=== PATIENT | male | born 1975 | race Caucasian/White ===

== ENCOUNTER → 2023-09-07 17:16 | Outpatient (CLI) | payer BC, SELFPAY ==
--- NOTE | 2023-09-07 | DI.MRI.S_ITS ---
PROCEDURE: MR KNEE LT WO CON INDICATIONS: Unspecified internal derangement of left knee TECHNIQUE: Noncontrast sagittal PD fast spin echo and T2 fast spin echo with fat saturation, sagittal 3-D FLASH with fat saturation; coronal T1 spin echo and PD fast spin echo with fat saturation, and axial PD fast spin echo with fat saturation through the knee. COMPARISON: None. FINDINGS: Image quality: Excellent. Menisci: There is an oblique tear involving the posterior horn of the patient's medial meniscus extending to the inferior joint surface. Lateral meniscus appears within normal limits. Cruciate ligaments: The anterior and posterior cruciate ligaments appear intact. Medial structures: The medial collateral ligament appears intact. The posterior oblique ligament, semimembranosus tendon insertions, oblique popliteal ligament, and meniscocapsular junction appear intact. Visualized portions of the pes anserinus tendons appear normal. No abnormal bursal fluid. Lateral structures: The lateral collateral ligament, long and short heads of the biceps femoris tendon appear intact. The popliteus tendon appears normal; the popliteofibular ligament appears intact. The posterosuperior and anteroinferior popliteomeniscal fascicles appear intact. The arcuate and fabellofibular ligaments appear intact, on either side of the lateral inferior geniculate artery. Iliotibial band appears normal. Anterior structures: The quadriceps and patellar tendons appear intact. Patellar alignment is normal. No femoral trochlear dysplasia or ventral trochlear prominence. No edema in the infrapatellar fat pad. Bones and cartilage: No bone marrow contusions or fractures. There is mild to moderate chondromalacia involving the articular surface of the medial compartment. Remainder of the articular cartilage appears intact. Joint space: There is a moderate-sized knee joint effusion. A tiny Arroyo's cyst is present. Normal appearing synovial plicae are incidentally noted. IMPRESSION: 1. Oblique tear involving the posterior horn of the patient's medial meniscus extending to the inferior joint surface. 2. 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 3. Moderate-sized knee joint effusion. 4. Tiny Arroyo's cyst Dictated by: Patel Johnson M.D. on 09/08/2023 at 9:39 Approved by: Patel Johnson M.D. on 09/08/2023 at 9:44
== END ==
PROVIDERS: PCP Family Medicine; Referring Provider Orthopaedic Surgery Foot and Ankle Surgery; Visit Provider Orthopaedic Surgery Foot and Ankle Surgery
DX: M23.92 Unspecified internal derangement of left knee (principal); S83.242A Other tear of medial meniscus, current injury, left knee, initial encounter; M94.262 Chondromalacia, left knee; M25.462 Effusion, left knee; M71.22 Synovial cyst of popliteal space [Baker], left knee
CPT/HCPCS: 73721

== ENCOUNTER 2024-11-28 09:19 | Day surgery (SDC) | payer BC, SELFPAY ==
[2024-11-28 09:32] VITALS: BP 126/78; PULSE 90; RESP 16; TEMP 36.4; O2SAT 96
[2024-11-28] MEDS: LACTATED RINGERS 1,000 ML 42 ML IV (09:41)
--- NOTE | 2024-11-28 10:00 | P.HP_ITS ---
History of Present Illness History of Present Illness Date Patient Seen: 11/28/24 Time Patient Seen: 10:00 Chief complaint: Colonoscopy w/poss bx Narrative: 49-year-old white male with personal history of polyps presents for colon screening [facility] Medical History (Updated 11/28/24 @ 10:01 by Jose Newman MD) Personal history of colonic polyps (2019) Multiple atypical skin moles (~2006) Chronic back pain (~2006) Chicken pox (~1984) Depression (~1999) Hypogonadism in male (~2006) Surgical History (Updated 11/24/22 @ 21:12 by Gloria Blackmon) Anesthesia History of oral surgery Family History (Updated 11/24/22 @ 21:13 by Gloria Blackmon) Father Cancer Melanoma Grandfather Cancer Grandmother Alcohol abuse Social History Smoking Status: Former smoker alcohol intake: never Meds Home Medications and Allergies Home Medications Medication Instructions Recorded Confirmed Type testosterone 0.6 ml IM WEEKLY 10/19/22 11/28/24 History bupropion HCl 300 mg 24 hr tablet, 300 mg PO QAM #90 tabs 01/07/24 11/28/24 Rx extended release (Wellbutrin XL) sodium,potassium,mag sulfates 17.5 See Rx Instructions PO .COMPLEX 10/26/24 Rx gram-3.13 gram-1.6 gram oral soln #354 mL (Suprep Bowel Prep Kit) zolpidem 5 mg tablet (Ambien) 5 mg PO BEDTIME PRN insomnia #30 11/10/24 11/28/24 Rx tabs Allergies Allergy/AdvReac Type Severity Reaction Status Date / Time No Known Drug Allergies Allergy Verified 11/28/24 09:26 Exam Vital Signs (past 8 hours): - 11/28/24 09:32 Temperature 97.6 F Pulse Rate 90 Respiratory Rate 16 Blood Pressure 126/78 Pulse Oximetry 96 Oxygen Delivery Method Room Air Oxygen Delivery Method Room Air Narrative Exam Narrative: Gen: NAD, sitting comfortably in bed, appears well HEENT: Sclera are anicteric, head is normocephalic and atraumatic, trachea is midline. CV: RRR, no JVD Resp: clear to auscultation bilaterally, equal chest wall movement bilaterally Abd: soft, nontender, normoactive bowel sounds Ext: no edema, full range of motion Neuro: Cranial nerves II-XII grossly intact, no focal deficits Skin: No erythema or ecchymosis Assessment & Plan Assessment and plan (1) Personal history of colonic polyps: Status: Acute Assessment & Plan narrative: Patient presents for colonoscopy Risks, benefits, alternatives to colonoscopy explained, including but not limited to bowel perforation or other serious complication requiring surgery at less than 1 in 5000 colonoscopies, abdominal pain, cramping or bleeding and less than 1% of colonoscopies, and the chances that we find a diagnosis that would require further intervention of about 2%. Patient agrees to proceed. Time-Based Coding :: [TOTAL MINUTES] spent with patient and on the chart (including review of chart, obtaining history, exam, reviewing outside data, placing orders, documenting exam and treatment plan, and counseling patient) on [DATE]. [employer] Document charge(s): No
[2024-11-28 10:20] VITALS: BP 102/64; PULSE 77; RESP 14; TEMP 36.2; O2SAT 96
--- NOTE | 2024-11-28 10:20 | PM.OP.COLON ---
Operative Date/Time/Diagnoses Date of procedure: 11/28/24 Time of procedure: 10:20 Pre-op diagnosis: Personal history of polyps Post-op diagnosis: same Procedure & Clinicians Study performed: Colonoscopy Same procedure as scheduled: Yes Indications: Personal history of polyps Surgeon: Jose Newman Procedure Notes SCOAP/Timeout: Performed Procedure in detail: Time-out was performed. Mac was induced. Patient was placed in left lateral decubitus position. The perineum was inspected without any gross abnormality. Lubricated pediatric colonoscope was inserted and advanced to the cecum. The terminal ileum was intubated. The colonoscope was withdrawn slowly inspecting the circumference of the colon. Very small polyps may have been missed, prep quality was adequate. Retroflexed view of the rectum showed small, non prolapsed nonbleeding internal hemorrhoids. The scope was withdrawn the patient was taken to PACU in good condition. Scope withdrawal time: 8 Sedation minutes: 13 Specimen(s): none sent Complications: none Impression: Normal colon Post-procedure Recommendations: Colonoscopy in 10 years Follow up: as needed Disposition: PACU
[2024-11-28 10:25] VITALS: BP 109/68; PULSE 75; RESP 17; O2SAT 96
[2024-11-28 10:29] VITALS: BP 95/74; PULSE 65; RESP 10; TEMP 36.3; O2SAT 96
[2024-11-28 10:37] VITALS: BP 118/72; PULSE 67; RESP 14; O2SAT 98
== END 2024-11-28 10:43 | disposition home or self-care (01) ==
PROVIDERS: PCP Family Medicine; Referring Provider Surgery; Visit Provider Surgery
PROC: 0DJD8ZZ Inspection of Lower Intestinal Tract, Via Natural or Artificial Opening Endoscopic (ICD-10-PCS; CPT 45378; principal; 2024-11-28 10:15)
DX: Z12.11 Encounter for screening for malignant neoplasm of colon (principal); Z87.891 Personal history of nicotine dependence; Z86.0100 Personal history of colon polyps, unspecified; K64.8 Other hemorrhoids
CPT/HCPCS: 45378; J2405; J2704